=== PATIENT | female | born 1930 | race Caucasian/White ===

== ENCOUNTER → 2016-08-04 | Outpatient (CLI) | payer MEDICARE, BC ==
[2016-08-04 14:18] VITALS: BP 127/75; PULSE 69; RESP 16; TEMP 97.8
--- NOTE | 2016-08-04 15:40 | P.CONS ---
History of Present Illness - Reason for Consult Consult date: 08/04/16 - History of Present Illness This is the initial consultation visit for this 86 years old female, thought complaining of severe low back pain with radiation to both lower extremities February 2016, she denies any initiating event she has no history of trauma or fall, no history of heavy lifting, as she reported that the pain intensity increased over a few days and she had no motor or sensory deficit, and no change in the bowel movement or urination, intensity of the pain is 8/10 and increases with any activity, and therapeutic with her activities of daily livings, patient had 2 lumbar epidural steroid injections at different pain clinic and she had improvement in her pain that is radiated to the right lower extremity but she continued to have severe pain that radiated to the left lower extremity, and she reported that 3 days after the second epidural steroid injection she has to be admitted to the hospital, because of increased pain and nausea and she had urinary tract infection, she is able to ambulate using a walker, but she is not able to walk on her own because of the intensity of the pain and feels unsteady gait, she is using Percocet 5/325 every 6 hours, and this helping the pain ,but according to her ,it make her very sleepy, Past Medical History Past Medical History: Myocardial Infarction ([place]) Additional Past Medical History / Comment(s): back pain Last Myocardial Infarction Date:: Apr 20 History of Any Multi-Drug Resistant Organisms: None Reported Past Surgical History: Appendectomy, Cholecystectomy, Heart Catheterization Additional Past Surgical History / Comment(s): jinny 06/03/16 and 07/03/16 Past Anesthesia/Blood Transfusion Reactions: No Reported Reaction Past Psychological History: No Psychological Hx Reported Smoking Status: Never smoker Past Alcohol Use History: None Reported Past Drug Use History: None Reported - Past Family History Mother History Unknown: Yes Family Medical History: No Reported History Medications and Allergies Home Medications Medication Instructions Recorded Confirmed Type Aspirin [Adult Low Dose Aspirin EC] 81 mg PO DAILY 08/04/16 08/04/16 History Furosemide [Lasix] 10 mg PO DAILY 08/04/16 08/04/16 History Hydrocodone/Acetaminophen [[place] 1 tab PO Q6H PRN 08/04/16 08/04/16 History 5-325] Ibuprofen [Motrin] 400 mg PO TID PRN 08/04/16 08/04/16 History Potassium Chloride [Klor-Con 20] 40 meq PO DAILY 08/04/16 08/04/16 History Pregabalin [Lyrica] 75 mg PO TID 08/04/16 08/04/16 History Allergies Allergy/AdvReac Type Severity Reaction Status Date / Time egg Allergy Unknown Verified 08/04/16 13:58 nitroglycerin Allergy Unknown Verified 08/04/16 13:58 [From Nitro-Bid] Penicillins Allergy Unknown Verified 08/04/16 13:58 Sulfa (Sulfonamide Allergy Unknown Verified 08/04/16 13:58 Antibiotics) Physical Exam Vitals: Vital Signs Temp Pulse Resp BP Pulse Ox 08/04/16 14:09 97.8 F 69 16 127/75 96 - Constitutional Social history : not smoker , NO ETOH , NO Illegal drugs use . Review of Systems : 1- Constitutional : no chills , no fever , no night sweats , 2- Ears : no ear discharge , no change in hearing 3-Nose, Mouth ,Throat ; no bleeding gums, no sore throat , no epistaxis , 4-Cardiovascular : Denies chest pain, , no orthopnea , no palpitation 5-Respiratory : Denies cough , no dyspnea , no hemoptysis 6-Gastrointestinal :, no change in bowel habits , no coffee- ground emesis . 7-Genitourinary : No hematuria , no discharge , no incontinence, 8-Musculoskeletal gait dysfunction , report low back pain , 9- Neurological : no ataxia , no tremor , no sezure , 10-Psychatric , no suicidal ideation no hallucination 11- Endocrine : no cold intolerence , no polyuria , no polydypsia , 12-Hematologic : no easy bleeding , no easy brusing , 13-Allergic / immunology : no angioedema , no wheezing ,no allergic rhinitis 14-Integumentary : no brttle nails , no change hair / nails , no foot/leg ulcers . Physical Examinations : 1-Constitutional : Cooperative , not in acute distress . 2-HEENT : nech ; supple , no Lymphadenopathy , no Thyromegaly , eyes , no icterus, no photophobia . ENT : , normal oropharynx , no Thrush 3- Respiratory : Chest clear to auscultations Bilaterally , no wheezing . 4- Cardiovascular : regular rate and rhythem , S1 , S2 , no S3 , no S4. 5- Gastrointestinal: abdomen soft no tenderness , no organomegally . 6- Genitourinary : Defferred . 7-Integumentary : No cellulitis , no ulcers , normal skin turgor , no cyanotic . 8- neurologic : Cranial nerve II to XII intact , no focal neurological deffecit 9-psychatric : alert , oriented X 3 , appropriate affect , intact judgment and insight . 10-Lymphatic : no Lymphadenopathy. 11- musculoskeltal: Uses walker to ambulate exams of the Lumber spine = moter stegnth lower extremities , thigh and legs 4/5 Right side , 4/5 Left side deep tendon reflexes : normal Knee Jerk , normal ankle Jerk positive lumber facet Loading Test Range of motion of the lumbar spine Flexion 30 degrees, extension 10 degrees strait leg raising test , positive at 30 degree( left side ) Fabere test negative RT and positive LT . Results Comments: MRI of the lumbar spine= multilevel lumbar bulging disc disease and foraminal stenosis, and multilevel lumbar facet arthropathy, and a grade 1 anterolisthesis Assessment and Plan Plan: Assessment and plan = - Chronic low back pain secondary to lumbar degenerative disc disease , lumbar spondylosis with facet arthropathy without myelopathy - diagnoses, prognosis, and treatment options including but not limited to physical therapy, surgical interventions, interventional therapies and medication management including narcotics and adjuvant medication were discussed with the patient and all questions answered to the patient's satisfaction. -medication refile =1-recommend increase Lyrica 75 mg 1 tablet by mouth every 8 hours (currently she is taking it twice a day) 2-discontinue Percocet 5/325 (patient had side effects from it made her very sleepy ) 3-start patient on [place] 5/325 1/2 -1 tablet by mouth every 6 hours dispensed 60 -procedure= scheduled patient to have lumbar epidural steroid injections under fluoroscopy guidance (left sided paramedian approach ) and this will be done Tomorrow morning , Time with Patient: Greater than 30
== END | disposition home or self-care (01) ==
LOC: PNWHC3 13:34
PROVIDERS: ATTEND Specialist
DX: M51.36 Other intervertebral disc degeneration, lumbar region (principal); M47.816 Spondylosis without myelopathy or radiculopathy, lumbar region; M46.96 Unspecified inflammatory spondylopathy, lumbar region; M51.26 Other intervertebral disc displacement, lumbar region; M48.06 Spinal stenosis, lumbar region; Z79.899 Other long term (current) drug therapy; Z88.0 Allergy status to penicillin; Z88.2 Allergy status to sulfonamides; Z88.8 Allergy status to other drugs, medicaments and biological substances; Z91.012 Allergy to eggs; I25.2 Old myocardial infarction
CPT/HCPCS: 99211

== ENCOUNTER 2016-08-05 06:14 | Day surgery (SDC) | payer MEDICARE, BC ==
[2016-08-05] MEDS ORDERED: LACTATED RINGERS 1,000 ML IV ONE (06:51)
[2016-08-05 06:57] VITALS: TEMP 99.3
[2016-08-05] MEDS ORDERED: LACTATED RINGERS 1,000 ML IV SCH (07:00)
[2016-08-05] MEDS ORDERED: fentaNYL (PF) 50 MCG/ML 2 ML AMP ONE (07:41)
[2016-08-05] MEDS ORDERED: MIDAZOLAM 2 MG/2 ML VIAL ONE (07:41)
--- NOTE | 2016-08-05 07:55 | P.PCN ---
Date of Procedure: 08/05/16 Procedure(s) Performed: PREOPERATIVE DIAGNOSIS: 1- Lumbar Degenerative Disc Diseases 2-Lumbar spondylosis with Facet arthropathy without myelopathy POSTOPERATIVE DIAGNOSIS: 1-Lumber Degenerative Disc Diseases 2-Lumbar spondylosis with Facet arthropathy without myelopathy PROCEDURE 1. Lumbar epidural steroid injection under fluoroscopic guidance at the L5-S1 level. 2. Lumbar epidurogram. ANESTHESIA: Local with 1% lidocaine 3 ml and IV sedation with Versed 0.5 mg ,and fentanyle 25 Mcg EBL: Minimal PROCEDURE INDICATION: The patient with low back pain and radiculitis symptoms unresponsive to conservative treatment. Fluoroscopy was used to optimize visualization of the needle placement and to maximize safety. PROCEDURE DESCRIPTION / TECHNIQUE: The patient was seen and identified in the preoperative area. Risks, benefits , complications including but not limited to infections ,bleeding ,allergic reaction to the medications ,nerve damage and not complete pain releife , and alternatives were discussed with the patient. The patient agreed to proceed with the procedure and signed the consent. IV was started, and vital signs were stable. Patient was taken to the OR and time out was completed. The patient was placed in the prone position on procedure table and a pillow was placed under the abdomen to reduce lumbar lordosis. The lumbosacral area was prepped and draped in the usual sterile fashion.ere closely monitored during the procedure. Conscious sedation was used during the procedure to decrease patients anxiety. Vital signs was monitered during the entire procedure. Using anterior-posterior fluoroscopy, the L5-S1 interlaminar space was identified and the skin over this site was marked and then infiltrated with 1% lidocaine subcutaneously. Subsequently, a 20-gauge Tuohy epidural needle was inserted and advanced toward the epidural space using the Loss of resistance technique and guided by AP and lateral fluoroscopy. The correct needle position in the epidural space was verified with the injection of 2 mL of the water soluble contrast dye Omnipaque 180 contrast and observing an excellent epidurogram with the epidural spread of the dye, after negative aspiration for blood and CSF and in the absence of paresthesias. Again after negative aspiration, a 6 ml mixture containing 60 mg of Kenalog and 2 ml of preservative free Normal Saline, and 2 ml of preservative free lidocaine 1% solution was injected and a washout of epidurogram was seen. Needle was withdrawn intact, skin was cleansed, and bandages were applied. COMPLICATIONS: None DISPOSITION / PLANS: The patient was placed in a supine position and transferred to the recovery area in a stable condition for observation. There was no evidence of lower extremity motor or sensory deficit after the procedure. Patient was discharged from the recovery room after meeting discharge criteria. Home discharge instructions were given to the patient by the staff. The patient was reexamined prior to discharge. The patient will schedule a follow up in the clinic in 2-4 weeks.
[2016-08-05] MEDS ORDERED: IV FLUID CONTINUATION 900 ML IV ONE (08:02)
[2016-08-05 08:25] VITALS: BP 125/45; PULSE 69; RESP 16
--- NOTE | 2016-08-05 09:13 | FL ---
Fluoroscopy HISTORY: Pain 4 seconds fluoroscopy time supplied to the referring clinician. 1intraoperative C-arm images documen t the procedure. See dictated report from anesthesia.
== END 2016-08-05 09:06 | disposition home or self-care (01) ==
LOC: ORPAIN 06:14
PROVIDERS: ATTEND Specialist
DX: M51.16 Intervertebral disc disorders with radiculopathy, lumbar region (principal); M47.26 Other spondylosis with radiculopathy, lumbar region; M46.96 Unspecified inflammatory spondylopathy, lumbar region; M48.06 Spinal stenosis, lumbar region; M43.16 Spondylolisthesis, lumbar region; G89.29 Other chronic pain; I25.2 Old myocardial infarction; Z79.1 Long term (current) use of non-steroidal anti-inflammatories (NSAID); Z79.82 Long term (current) use of aspirin; Z79.891 Long term (current) use of opiate analgesic; Z79.899 Other long term (current) drug therapy; Z88.0 Allergy status to penicillin; Z88.2 Allergy status to sulfonamides; Z88.8 Allergy status to other drugs, medicaments and biological substances; Z91.012 Allergy to eggs
CPT/HCPCS: 62323; J2250; J3010

== ENCOUNTER → 2016-08-20 | Outpatient (CLI) | payer MEDICARE, BC ==
[2016-08-20 14:39] VITALS: BP 153/92; PULSE 185; RESP 16; TEMP 98
--- NOTE | 2016-08-20 15:04 | P.PN ---
Progress Note - Text This is an 86-year-old female with lower back pain with radiation to the left lower extremity down to the left foot with numbness and tingling. The patient has severe lumbar stenosis at the L4 5 level by her last MRI. She had 3 interlaminar epidural steroid injection with limited relief of pain however the patient's states that she is sleeping better after the third injection that she had. The patient now takes 2 pills a day of [place] 5/325 mg to help with the pain. She does have mild degree of constipation as she states and I asked her to take Senokot to help with that. The patient has a trip for 1 month to [place] we will see her when she comes back for reevaluation however I think she might need to have transforaminal epidural steroid injection at the L4 5 level towards the left side under fluoroscopic guidance. She also may be a candidate for lumbar medial branch block as diagnostic procedure in the future if her lower back pain is getting worse. Today I will give her prescription for [place] 5/325 mg 60 pills for 1 month. We will see her when she goes back from [place] in September for reevaluation.
== END | disposition home or self-care (01) ==
LOC: PNWHC3 13:04
PROVIDERS: ATTEND Anesthesiology
DX: M48.06 Spinal stenosis, lumbar region (principal); K59.00 Constipation, unspecified; Z79.899 Other long term (current) drug therapy
CPT/HCPCS: 99211

== ENCOUNTER 2016-10-23 11:53 | Observation (INO) | payer MEDICARE, BC ==
--- NOTE | 2016-10-23 13:52 | ED ---
General Adult HPI <Ruel Fajardo - Last Filed: 10/23/16 16:38> - General Source: patient, family, RN notes reviewed Mode of arrival: wheelchair Limitations: no limitations <Alek Welsh - Last Filed: 10/23/16 16:50> - General Chief complaint: Extremity Problem,Nontraumatic Stated complaint: leg infection, Nausea Time Seen by Provider: 10/23/16 13:39 - History of Present Illness Initial comments: Patient a 86-year-old female who presents emergency room today with a chief complaint of nausea and leg edema. She does admit that she's had some chronic swelling to her legs over the last few months. Also admits some redness and rash to the area. States was seen by the family doctor earlier today and was advised come here to the emergency room for further evaluation. States he was worried about possible blood clot. States she has had some nausea off and on. States that unsure if this is related back to medication of Lyrica that she began taking back June. She states tried weaning her off a few times but develops symptoms of nausea. Patient denies any other complaints currently. Patient denies any recent fever, chills, shortness of breath, chest pain, abdominal pain, nausea or vomiting, numbness or tingling, dysuria or hematuria, constipation or diarrhea, headaches or visual changes, or any other complaints. (Alek Welsh) - Related Data Home Medications Medication Instructions Recorded Confirmed Aspirin [Adult Low Dose Aspirin EC] 81 mg PO DAILY 08/04/16 10/23/16 Furosemide [Lasix] 10 mg PO DAILY 08/04/16 10/23/16 Hydrocodone/Acetaminophen [[place] 1 tab PO Q6H PRN 08/04/16 10/23/16 5-325] Potassium Chloride [Klor-Con 20] 40 meq PO DAILY 08/04/16 10/23/16 Pregabalin [Lyrica] 50 mg PO DAILY 10/23/16 10/23/16 Previous Rx's Medication Instructions Recorded ALPRAZolam [Xanax] 0.5 mg PO HS PRN #30 tab 07/09/16 Allergies Allergy/AdvReac Type Severity Reaction Status Date / Time egg Allergy Unknown Verified 10/23/16 12:56 nitroglycerin Allergy Unknown Verified 10/23/16 12:56 [From Nitro-Bid] Penicillins Allergy Unknown Verified 10/23/16 12:56 Sulfa (Sulfonamide Allergy Unknown Verified 10/23/16 12:56 Antibiotics) pregabalin [From Lyrica] AdvReac LEG Verified 10/23/16 12:56 SWELLING Review of Systems ROS Other: All systems not noted in ROS Statement are negative. <Ruel Fajardo - Last Filed: 10/23/16 16:38> ROS Other: All systems not noted in ROS Statement are negative. <Alek Welsh - Last Filed: 10/23/16 16:50> ROS Statement: Those systems with pertinent positive or pertinent negative responses have been documented in the HPI. Past Medical History Past Medical History: Myocardial Infarction ([place]) Additional Past Medical History / Comment(s): back pain Last Myocardial Infarction Date:: Apr 20 History of Any Multi-Drug Resistant Organisms: None Reported Past Surgical History: Appendectomy, Cholecystectomy, Heart Catheterization Additional Past Surgical History / Comment(s): ijnny 06/03/16 and 07/03/16 Past Anesthesia/Blood Transfusion Reactions: No Reported Reaction Past Psychological History: No Psychological Hx Reported Smoking Status: Never smoker Past Alcohol Use History: None Reported Past Drug Use History: None Reported - Past Family History Mother History Unknown: Yes Family Medical History: No Reported History <Alek Welsh - Last Filed: 10/23/16 16:50> General Exam <Ruel Fajardo - Last Filed: 10/23/16 16:38> Limitations: no limitations <WelshAlek - Last Filed: 10/23/16 16:50> - General Exam Comments Initial Comments: General: The patient is awake and alert, in no distress, and does not appear acutely ill. Eye: Pupils are equal, round and reactive to light, extra-ocular movements are intact. No nystagmus. There is normal conjunctiva bilaterally. No signs of icterus. Ears, nose, mouth and throat: There are moist mucous membranes and no oral lesions. Neck: The neck is supple, there is no tenderness or JVD. Cardiovascular: There is a regular rate and rhythm. No murmur, rub or gallop is appreciated. Respiratory: Lungs are clear to auscultation, respirations are non-labored, breath sounds are equal. No wheezes, stridor, rales, or rhonchi. Gastrointestinal: Soft, non-distended, non-tender abdomen without masses or organomegaly noted. There is no rebound or guarding present. No CVA tenderness. Bowel sounds are unremarkable. Musculoskeletal: Normal ROM. Strength 5/5. Sensation intact. Pulses equal bilaterally 2+. 2+ pitting edema. Neurological: A&O x 3. CN II-XII intact, There are no obvious motor or sensory deficits. Coordination appears grossly intact. Speech is normal. Skin: Skin is warm and dry and no rashes or lesions are noted. Psychiatric: Cooperative, appropriate mood & affect, normal judgment. (Alek Welsh) Course <Ruel Fajardo - Last Filed: 10/23/16 16:38> <Alek Welsh - Last Filed: 10/23/16 16:50> Vital Signs 10/23/16 11:58 Temperature 98.0 F Pulse Rate 62 Respiratory 16 Rate Blood Pressure 140/66 O2 Sat by Pulse 97 Oximetry - Reevaluation(s) Reevaluation #1: 10/23/16 16:38 Patient reevaluated by myself, Dr. Fajardo. Patient resting comfortably at bedside. Patient does have +2 pitting edema. Patient was sent over by Dr. Mcarthur with plan for admission for pedal edema. Case was discussed in detail with Dr. Bellamy, who will admit with Lasix 40 mg every 12 hours. She also recommends echo. (Ruel Fajardo) Medical Decision Making - Lab Data Result diagrams: 10/23/16 14:15 10/23/16 14:15 <Ruel Fajardo - Last Filed: 10/23/16 16:38> - Lab Data Result diagrams: 10/23/16 14:15 10/23/16 14:15 <Alek Welsh - Last Filed: 10/23/16 16:50> - Lab Data Lab Results 10/23/16 10/23/16 10/23/16 Range/Units 14:15 14:15 14:15 WBC 6.7 (3.8-10.6) k/uL RBC 3.67 L (3.80-5.40) m/uL Hgb 11.7 (11.4-16.0) gm/dL Hct 34.9 (34.0-46.0) % MCV 95.2 (80.0-100.0) fL MCH 31.9 (25.0-35.0) pg MCHC 33.6 (31.0-37.0) g/dL RDW 14.2 (11.5-15.5) % Plt Count 222 (150-450) k/uL Neutrophils % 71 % Lymphocytes % 17 % Monocytes % 5 % Eosinophils % 5 % Basophils % 1 % Neutrophils # 4.8 (1.3-7.7) k/uL Lymphocytes # 1.1 (1.0-4.8) k/uL Monocytes # 0.3 (0-1.0) k/uL Eosinophils # 0.3 (0-0.7) k/uL Basophils # 0.0 (0-0.2) k/uL Sodium 143 (137-145) mmol/L Potassium 4.0 (3.5-5.1) mmol/L Chloride 105 (98-107) mmol/L Carbon Dioxide 29 (22-30) mmol/L Anion Gap 9 mmol/L BUN 30 H (7-17) mg/dL Creatinine 1.25 H (0.52-1.04) mg/dL Est GFR (MDRD) Af Amer 49 (>60 ml/min/1.73 sqM) Est GFR (MDRD) Non-Af 41 (>60 ml/min/1.73 sqM) Glucose 100 H (74-99) mg/dL Calcium 9.6 (8.4-10.2) mg/dL Total Bilirubin 0.6 (0.2-1.3) mg/dL AST 39 H (14-36) U/L ALT 40 (9-52) U/L Alkaline Phosphatase 68 (38-126) U/L Total Creatine Kinase 69 (30-135) U/L CK-MB (CK-2) 2.3 (0.0-2.4) ng/mL CK-MB (CK-2) Rel Index 3.3 Troponin I <0.012 (0.000-0.034) ng/mL NT-Pro-B Natriuret Pep pg/mL Total Protein 6.9 (6.3-8.2) g/dL Albumin 3.9 (3.5-5.0) g/dL 10/23/16 Range/Units 14:15 WBC (3.8-10.6) k/uL RBC (3.80-5.40) m/uL Hgb (11.4-16.0) gm/dL Hct (34.0-46.0) % MCV (80.0-100.0) fL MCH (25.0-35.0) pg MCHC (31.0-37.0) g/dL RDW (11.5-15.5) % Plt Count (150-450) k/uL Neutrophils % % Lymphocytes % % Monocytes % % Eosinophils % % Basophils % % Neutrophils # (1.3-7.7) k/uL Lymphocytes # (1.0-4.8) k/uL Monocytes # (0-1.0) k/uL Eosinophils # (0-0.7) k/uL Basophils # (0-0.2) k/uL Sodium (137-145) mmol/L Potassium (3.5-5.1) mmol/L Chloride (98-107) mmol/L Carbon Dioxide (22-30) mmol/L Anion Gap mmol/L BUN (7-17) mg/dL Creatinine (0.52-1.04) mg/dL Est GFR (MDRD) Af Amer (>60 ml/min/1.73 sqM) Est GFR (MDRD) Non-Af (>60 ml/min/1.73 sqM) Glucose (74-99) mg/dL Calcium (8.4-10.2) mg/dL Total Bilirubin (0.2-1.3) mg/dL AST (14-36) U/L ALT (9-52) U/L Alkaline Phosphatase (38-126) U/L Total Creatine Kinase (30-135) U/L CK-MB (CK-2) (0.0-2.4) ng/mL CK-MB (CK-2) Rel Index Troponin I (0.000-0.034) ng/mL NT-Pro-B Natriuret Pep 201 pg/mL Total Protein (6.3-8.2) g/dL Albumin (3.5-5.0) g/dL Disposition <Ruel Fajardo - Last Filed: 10/23/16 16:38> Time of Disposition: 16:30 <Alek Welsh - Last Filed: 10/23/16 16:50> Clinical Impression: Pedal edema Disposition: ADMITTED IP TO THIS HOSP Condition: Good
[2016-10-23 14:38] LABS: Basophils % (A) 1 %; CH 31.7; CHCM 33.4; Eosinophils # (A) 0.3 k/uL (0-0.7); Eosinophils % (A) 5 %; HCT 34.9 % (34.0-46.0); HDW 2.98; HGB 11.7 gm/dL (11.4-16.0); Luc # (Auto) 0.15; Luc % (Auto) 2; Lymphocytes # (A) 1.1 k/uL (1.0-4.8); Lymphocytes % (A) 17 %; MCH 31.9 pg (25.0-35.0); MCHC 33.6 g/dL (31.0-37.0); MCV 95.2 fL (80.0-100.0); Mean Platelet Volume 6.9; Monocytes # (A) 0.3 k/uL (0-1.0); Monocytes % (A) 5 %; Neutrophils # (A) 4.8 k/uL (1.3-7.7); Neutrophils % (A) 71 %; RBC 3.67 m/uL (3.80-5.40); RDW 14.2 % (11.5-15.5); WBC 6.7 k/uL (3.8-10.6)
--- NOTE | 2016-10-23 14:42 | XR ---
EXAMINATION TYPE: XR chest 2V DATE OF EXAM: 10/23/2016 2:37 PM COMPARISON: NONE TECHNIQUE: PA and lateral views submitted. HISTORY: Leg edema FINDINGS: The lungs are clear and there is no pneumothorax, pleural effusion, or focal pneumonia. Heart is en larged. Position limits portions of the upper lung rojas bilaterally. Degenerative change of the spi ne. Surgical clips in the abdomen. Atherosclerotic change aorta. Calcific tendinosis of the right giovany ulder. IMPRESSION: 1. Mild cardiomegaly. No overt failure.
[2016-10-23 14:51] LABS: Calcium 9.6 mg/dL (8.4-10.2); Total Bilirubin 0.6 mg/dL (0.2-1.3); Total Protein 6.9 g/dL (6.3-8.2)
[2016-10-23 15:39] LABS: Creatine Kinase 69 U/L (30-135)
[2016-10-23] MEDS ORDERED: HYDROcodone/APAP 7.5-325MG 1 EACH TAB PO ONE (15:41)
[2016-10-23] MEDS ORDERED: ONDANSETRON ODT 4 MG TAB PO STA (15:41)
[2016-10-23 15:53] LABS: Creatine Kinase MB 2.3 ng/mL (0.0-2.4); Troponin I <0.012 ng/mL (0.000-0.034)
--- NOTE | 2016-10-23 16:06 | US ---
EXAMINATION TYPE: US venous doppler duplex LE BI DATE OF EXAM: 10/23/2016 3:28 PM COMPARISON: 07/09/2016 CLINICAL HISTORY: Pain. Bilateral leg swelling SIDE PERFORMED: Bilateral TECHNIQUE: The lower extremity deep venous system is examined utilizing real time linear array sonog deepali with graded compression, doppler sonography and color-flow sonography. VESSELS IMAGED: External Iliac Vein (EIV) Common Femoral Vein Deep Femoral Vein Greater Saphenous Vein * Femoral Vein Popliteal Vein Small Saphenous Vein * Proximal Calf Veins (* superficial vessels) Right Leg: Appears negative for DVT, compressions were not done at the levels of the EIV, CFV and pr oximal femoral vein, patient unable to tolerate the transducer pressure during those compression atte mpts Left Leg: Appears negative for DVT IMPRESSION: 1. Limited exam due to patient's inability to tolerate compression view within portions of the right lower extremity. No DVT as visualized.
[2016-10-23] MEDS ORDERED: SODIUM CHLORIDE 0.9% 1,000 ML IV ONE (16:47)
[2016-10-23] MEDS ORDERED: NALOXONE 0.4 MG/ML 1 ML VIAL IV PRN (16:47)
[2016-10-23] MEDS ORDERED: ALPRAZolam 0.5 MG TAB PO PRN (16:49)
[2016-10-23] MEDS ORDERED: FUROSEMIDE 10 MG/ML 4 ML VIAL IV STA (16:49)
[2016-10-23 17:03] LABS: Appearance,Urine Clear (Clear); Bilirubin,Urine Negative (Negative); Glucose,Urine (UA) Negative (Negative); Ketones,Urine Negative (Negative); Leukocyte Esterase,Urine Negative (Negative); Nitrite,Urine Negative (Negative); Protein,Urine Trace (Negative); UA Billing (MACRO vs. MICRO) CHEM; Urobilinogen,Urine <2.0 mg/dL (<2.0)
[2016-10-23] MEDS: FUROSEMIDE 10 MG/ML 4 ML VIAL IV SCH (20:41)
[2016-10-23] MEDS: HYDROcodone/APAP 5-325MG 1 EACH TAB PO PRN (21:59)
[2016-10-24] MEDS ORDERED: ONDANSETRON 4 MG/2 ML VIAL ONE ×2 (01:19→04:40)
[2016-10-24] MEDS ORDERED: HYDROcodone/APAP 5-325MG 1 EACH TAB ONE (04:40)
[2016-10-24] MEDS: ONDANSETRON 4 MG/2 ML VIAL IVP PRN ×2 (07:54→14:10)
[2016-10-24] MEDS: POTASSIUM CHLORIDE ER 20 MEQ TAB.ER PO SCH (07:56)
[2016-10-24] MEDS: ASPIRIN 81 MG CHEW PO SCH (07:56)
[2016-10-24] MEDS: FUROSEMIDE 10 MG/ML 4 ML VIAL IV SCH ×2 (07:57→21:18)
[2016-10-24 08:20] LABS: Basophils # (A) 0.1 k/uL (0-0.2); Basophils % (A) 1 %; CH 32.1; CHCM 34.1; Eosinophils # (A) 0.2 k/uL (0-0.7); Eosinophils % (A) 3 %; HCT 34.3 % (34.0-46.0); HDW 3.13; HGB 11.5 gm/dL (11.4-16.0); Luc # (Auto) 0.23; Luc % (Auto) 4; Lymphocytes # (A) 1.1 k/uL (1.0-4.8); Lymphocytes % (A) 18 %; MCH 31.7 pg (25.0-35.0); MCHC 33.5 g/dL (31.0-37.0); MCV 94.7 fL (80.0-100.0); Mean Platelet Volume 6.9; Monocytes # (A) 0.4 k/uL (0-1.0); Monocytes % (A) 6 %; Neutrophils # (A) 4.4 k/uL (1.3-7.7); Neutrophils % (A) 69 %; RBC 3.63 m/uL (3.80-5.40); RDW 13.8 % (11.5-15.5); WBC 6.4 k/uL (3.8-10.6); WBC (Perox) 6.96
[2016-10-24 08:43] LABS: Calcium 9.5 mg/dL (8.4-10.2); Potassium 3.7 mmol/L (3.5-5.1); Total Bilirubin 0.8 mg/dL (0.2-1.3); Total Protein 6.9 g/dL (6.3-8.2)
[2016-10-24] MEDS: IOHEXOL 350 MG/ML 25 ML BOTTLE (ORAL USE) PO PRN ×2 (13:13→14:10)
[2016-10-24] MEDS: PANTOPRAZOLE 40 MG/10 ML VIAL IVP SCH (13:14)
--- NOTE | 2016-10-24 14:50 | CT ---
EXAMINATION TYPE: CT abdomen pelvis wo con DATE OF EXAM: 10/24/2016 2:44 PM COMPARISON: NONE HISTORY: abdominal pain, nausea CT DLP: 862 mGycm FINDINGS: LUNG BASES: No evidence for nodule. No evidence for infiltrate. LIVER/GB: Cholecystectomy clips are noted. No space-occupying hepatic lesion. PANCREAS: No pancreatic mass identified. No inflammatory process seen. SPLEEN: No evidence for splenomegaly. No intrasplenic lesions seen. ADRENALS: No adrenal nodules identified. No evidence for thickening. KIDNEYS: Small nonspecific hypoattenuating renal lesions are likely atelectasis. No nephrolithiasis. No hydronephrosis. BOWEL: There is moderately severe fecal stasis throughout the colon. Appendix has a normal appearance . No evidence of bowel obstruction. No inflammatory process. Small fixed hiatal hernia. Lymph nodes: No evidence for adenopathy greater than 1 cm. Abdominal aorta: Atheromatous changes seen. No evidence for aneurysm. Genital organs: Severe degenerative change is grade 1 anterolisthesis L4 and L5 Other: No significant abnormality. IMPRESSION: 1. MODERATELY SEVERE CONSTIPATION. 2. PROBABLE RENAL CYSTS. 3. SMALL HIATAL HERNIA.
[2016-10-24 15:44] VITALS: RESP 16
--- NOTE | 2016-10-24 17:03 | P.HPIM ---
History of Present Illness H&P Date: 10/24/16 Chief Complaint: Edema nausea This is a pleasant 86 show old lady patient of Dr. Lyubov Magana and Dr. Bautista. She has underlying history of lumbar disc disease with L4-L5 severe spinal stenosis, disc herniation spondylolisthesis the previous MRI performed April 2016she recently had an epidural steroid injection performed a lumbar area by Dr. Bautista 07/03/2016 she is scheduled to have spine surgery for her lumbar stenosis L2-L3, severe DJD with disc protrusion L1-L2, however they cannot perform the surgery as his lower extremity swelling has not gotten any better, he also wanted her to be evaluated emergency room second the clinic to the rash and lower extremity swelling. Patient has intermittently been nauseated with severe constipation, they thought it was from the Lyrica and was weaning of the Lyrica her last dose was a week ago, she also has upper epigastric abdominal pain with prior history of cholecystectomy, she has been having increasing use of Motrin patient denies any melena hematochezia no fever no chills no recent foreign travels. In the emergency room labs shows WBC of 6.4, hemoglobin 11.5 from a previous of 13.6 in June 2016, creatinine of 1.19 previous of 0.81 urinalysis is negative, amylase lipase normal, [employer] proBNP normal, albumin normal at 3.9, chest x-ray shows mild cardiomegaly with no overt failure, no pneumothorax or pleural effusion no focal pneumonia venous Doppler lower extremity failed to reveal any lower extremity DVT Review of Systems Constitutional: Reports as per HPI, Reports anorexia, Reports chronic pain, Reports fatigue, Reports lethargy, Reports poor appetite, Reports weight gain, Denies chills, Denies chronic headaches, Denies daytime sleepiness, Denies fever , Denies malaise, Denies night sweats, Denies sweats, Denies weakness, Denies weight loss Ears, nose, mouth and throat: Reports as per HPI, Denies ant. neck pain, Denies bleeding gums, Denies dental pain, Denies dysphagia, Denies epistaxis, Denies headache, Denies hoarseness, Denies mouth pain, Denies nasal congestion, Denies nasal discharge, Denies neck fullness/pressure, Denies neck lump, Denies nose pain, Denies odynophagia, Denies post-nasal drip, Denies sinus pain, Denies sinus pressure, Denies swelling in mouth, Denies swelling in throat, Denies sore throat, Denies vertigo, Denies voice changes Cardiovascular: Reports as per HPI, Reports leg edema, Denies chest pain, Denies claudication, Denies decreased exercise tolerance, Denies dyspnea on exertion, Denies edema, Denies high blood pressure, Denies irregular heart beat , Denies lightheadedness, Denies orthopnea, Denies palpitations, Denies paroxysmal nocturnal dyspnea, Denies phlebitis, Denies rapid heart beat, Denies shortness of breath, Denies syncope Respiratory: Reports as per HPI, Denies congestion, Denies cough, Denies cough with sputum, Denies dyspnea, Denies excessive sputum, Denies hemoptysis, Denies home oxygen, Denies pain, Denies pain on inspiration, Denies pleurisy, Denies respiratory infections, Denies sleep apnea, Denies snoring, Denies wheezing Gastrointestinal: Reports as per HPI, Reports abdominal pain, Reports bloating, Reports constipation, Reports indigestion, Denies belching, Denies BRBPR, Denies change in bowel habits, Denies coffee ground emesis, Denies diarrhea, Denies dyspepsia, Denies early satiety, Denies excessive gas, Denies heartburn, Denies hematemesis, Denies hematochezia, Denies jaundice, Denies lactose intolerance, Denies loss of appetite, Denies melena, Denies nausea, Denies vomiting Genitourinary: Reports as per HPI Menstruation: Reports as per HPI, Reports postmenopausal Musculoskeletal: Reports as per HPI, Denies arm numbness/tingling, Denies atrophy, Denies fractures, Denies frequent falls, Denies gait dysfunction, Denies hot joints, Denies leg numbness/tingling, Denies limitation of motion, Denies loss of height, Denies low back pain, Denies morning stiffness, Denies muscle cramps, Denies muscle weakness, Denies myalgias, Denies neck pain, Denies neck stiffness, Denies prior amputations, Denies redness of joints, Denies shooting arm pain, Denies shooting leg pain Integumentary: Reports as per HPI, Denies acne, Denies boils, Denies brittle nails, Denies change in hair/nails, Denies color changes, Denies darkening of skin, Denies depigmentation, Denies dryness, Denies foot/leg ulcers, Denies growths, Denies hirsutism, Denies lesions, Denies onychomycosis, Denies pruritus , Denies rash, Denies sores, Denies striae, Denies unusual bruising, Denies wounds Neurological: Reports as per HPI Past Medical History Past Medical History: Myocardial Infarction (OK), Osteoarthritis (OA) Additional Past Medical History / Comment(s): back pain, STRESS INCONT OF URINE , ARTHRITIS IN SPINE, SHINGLE LESS THAN 5 YEARS AGO Last Myocardial Infarction Date:: Apr 20 History of Any Multi-Drug Resistant Organisms: None Reported Past Surgical History: Appendectomy, Cholecystectomy, Heart Catheterization, Tonsillectomy, Tubal Ligation Additional Past Surgical History / Comment(s): jinny 06/03/16 and 07/03/16, CATARACTS Past Anesthesia/Blood Transfusion Reactions: No Reported Reaction Past Psychological History: No Psychological Hx Reported Additional Psychological History / Comment(s): LIVE WITH ,IS INDEPENDANT , HAS A CLEANING SERVICE. NO MEDICAL EQUIPMENT. Smoking Status: Never smoker Past Alcohol Use History: None Reported Past Drug Use History: None Reported - Past Family History Mother History Unknown: Yes Family Medical History: No Reported History Additional Family Medical History / Comment(s): AFTER A SX FROM A BLOOD CLOT. Father Family Medical History: Dementia Medications and Allergies Home Medications Medication Instructions Recorded Confirmed Type Aspirin [Adult Low Dose Aspirin EC] 81 mg PO DAILY 08/04/16 10/23/16 History Furosemide [Lasix] 10 mg PO DAILY 08/04/16 10/23/16 History Hydrocodone/Acetaminophen [[place] 1 tab PO Q6H PRN 08/04/16 10/23/16 History 5-325] Potassium Chloride [Klor-Con 20] 40 meq PO DAILY 08/04/16 10/23/16 History Pregabalin [Lyrica] 50 mg PO DAILY 10/23/16 10/23/16 History Allergies Allergy/AdvReac Type Severity Reaction Status Date / Time egg Allergy Unknown Verified 10/23/16 12:56 nitroglycerin Allergy Unknown Verified 10/23/16 12:56 [From Nitro-Bid] Penicillins Allergy Unknown Verified 10/23/16 12:56 Sulfa (Sulfonamide Allergy Unknown Verified 10/23/16 12:56 Antibiotics) pregabalin [From Lyrica] AdvReac LEG Verified 10/23/16 12:56 SWELLING Physical Exam Vitals: Vital Signs Temp Pulse Pulse Resp BP BP Pulse Ox 10/24/16 15:47 16 10/24/16 15:43 96.4 F L 68 16 144/68 95 10/24/16 15:40 68 10/24/16 08:00 64 18 10/24/16 07:00 98.4 F 67 16 129/59 95 10/23/16 22:10 98.9 F 64 18 140/63 96 10/23/16 19:27 98.8 F 62 18 130/60 97 10/23/16 17:28 65 18 147/67 98 10/23/16 16:58 98.5 F 61 18 149/66 98 Intake and Output 10/24/16 10/24/16 10/24/16 06:59 14:59 22:59 Intake Total 260 160 Balance 260 160 Intake: Intake, IV Titration 160 160 Amount Sodium Chloride 0.9% 1, 160 160 000 ml @ 20 mls/hr IV . Q24H ONE Rx#:[id number] Oral 100 Other: Voiding Method Toilet Toilet # Voids 1 3 - Constitutional General appearance: cooperative, no acute distress, obese - EENT Eyes: anicteric sclerae, PERRLA, poor dentition, normal appearance ENT: no hard of hearing, no hearing grossly normal, NA/AT, normal oropharynx, no other, no pharyngeal erythema, no thrush, no tonsillar exudates, no tonsillar swelling - Neck Neck: no lymphadenopathy, normal ROM, no other, no rigidity, no stridor, no thyromegaly - Respiratory Respiratory: bilateral: CTA, negative: dullness, rales, rhonchi, wheezing - Cardiovascular Rhythm: regular Heart sounds: normal: S1, S2 Abnormal Heart Sounds: no systolic murmur, no diastolic murmur, no rub, no S3 Gallop, no S4 Gallop, no click, no other leg Peripheral Edema: bilateral: 3+ - Gastrointestinal General gastrointestinal: distended, normal bowel sounds, soft, tenderness ( Epigastric upper quadrant) - Integumentary Integumentary: decreased turgor, normal, rash - Neurologic Neurologic: CNII-XII intact - Musculoskeletal Musculoskeletal: generalized weakness - Psychiatric Psychiatric: A&O x's 3, appropriate affect, intact judgment & insight Results CBC & Chem 7: 10/24/16 07:45 10/24/16 07:45 Labs: Abnormal Lab Results - Last 24 Hours (Table) 10/24/16 10/24/16 Range/Units 07:45 07:45 RBC 3.63 L (3.80-5.40) m/uL BUN 27 H (7-17) mg/dL Creatinine 1.19 H (0.52-1.04) mg/dL Glucose 104 H (74-99) mg/dL Laboratory Results WBC 6.4 k/uL (3.8-10.6) 10/24/16 07:45 RBC 3.63 m/uL (3.80-5.40) L 10/24/16 07:45 Hgb 11.5 gm/dL (11.4-16.0) 10/24/16 07:45 Hct 34.3 % (34.0-46.0) 10/24/16 07:45 MCV 94.7 fL (80.0-100.0) 10/24/16 07:45 MCH 31.7 pg (25.0-35.0) 10/24/16 07:45 MCHC 33.5 g/dL (31.0-37.0) 10/24/16 07:45 RDW 13.8 % (11.5-15.5) 10/24/16 07:45 Plt Count 202 k/uL (150-450) 10/24/16 07:45 Neutrophils % 69 % 10/24/16 07:45 Lymphocytes % 18 % 10/24/16 07:45 Monocytes % 6 % 10/24/16 07:45 Eosinophils % 3 % 10/24/16 07:45 Basophils % 1 % 10/24/16 07:45 Neutrophils # 4.4 k/uL (1.3-7.7) 10/24/16 07:45 Lymphocytes # 1.1 k/uL (1.0-4.8) 10/24/16 07:45 Monocytes # 0.4 k/uL (0-1.0) 10/24/16 07:45 Eosinophils # 0.2 k/uL (0-0.7) 10/24/16 07:45 Basophils # 0.1 k/uL (0-0.2) 10/24/16 07:45 Sodium 143 mmol/L (137-145) 10/24/16 07:45 Potassium 3.7 mmol/L (3.5-5.1) 10/24/16 07:45 Chloride 104 mmol/L (98-107) 10/24/16 07:45 Carbon Dioxide 26 mmol/L (22-30) 10/24/16 07:45 Anion Gap 13 mmol/L 10/24/16 07:45 BUN 27 mg/dL (7-17) H 10/24/16 07:45 Creatinine 1.19 mg/dL (0.52-1.04) H 10/24/16 07:45 Est GFR (MDRD) Af Amer 52 (>60 ml/min/1.73 sqM) 10/24/16 07:45 Est GFR (MDRD) Non-Af 43 (>60 ml/min/1.73 sqM) 10/24/16 07:45 Glucose 104 mg/dL (74-99) H 10/24/16 07:45 Calcium 9.5 mg/dL (8.4-10.2) 10/24/16 07:45 Total Bilirubin 0.8 mg/dL (0.2-1.3) 10/24/16 07:45 AST 35 U/L (14-36) 10/24/16 07:45 ALT 41 U/L (9-52) 10/24/16 07:45 Alkaline Phosphatase 61 U/L (38-126) 10/24/16 07:45 Total Creatine Kinase 69 U/L (30-135) 10/23/16 14:15 CK-MB (CK-2) 2.3 ng/mL (0.0-2.4) 10/23/16 14:15 CK-MB (CK-2) Rel Index 3.3 10/23/16 14:15 Troponin I <0.012 ng/mL (0.000-0.034) 10/23/16 14:15 NT-Pro-B Natriuret Pep 201 pg/mL 10/23/16 14:15 Total Protein 6.9 g/dL (6.3-8.2) 10/24/16 07:45 Albumin 3.9 g/dL (3.5-5.0) 10/24/16 07:45 Amylase 48 U/L (30-110) 10/24/16 07:45 Lipase 91 U/L (23-300) 10/24/16 07:45 Urine Color Yellow 10/23/16 16:18 Urine Appearance Clear (Clear) 10/23/16 16:18 Urine pH 7.0 (5.0-8.0) 10/23/16 16:18 Ur Specific [place] 1.020 (1.001-1.035) 10/23/16 16:18 Urine Protein Trace (Negative) H 10/23/16 16:18 Urine Glucose (UA) Negative (Negative) 10/23/16 16:18 Urine Ketones Negative (Negative) 10/23/16 16:18 Urine Blood Negative (Negative) 10/23/16 16:18 Urine Nitrite Negative (Negative) 10/23/16 16:18 Urine Bilirubin Negative (Negative) 10/23/16 16:18 Urine Urobilinogen <2.0 mg/dL (<2.0) 10/23/16 16:18 Ur Leukocyte Esterase Negative (Negative) 10/23/16 16:18 Thrombosis Risk Factor Assmnt - DVT/VTE Prophylaxis DVT/VTE Prophylaxis: Pharmacologic Prophylaxis ordered, Mechanical Prophylaxis ordered - Choose All That Apply Any of the Below Risk Factors Present?: Yes Each Factor Represents 1 point: Obesity (BMI >25), Swollen legs (current) Other Risk Factors: Yes Each Risk Factor Represents 3 Points: Age 75 years or older Other congenital or acquired thrombophilia - If yes, enter type in comment: No Thrombosis Risk Factor Assessment Total Risk Factor Score: 5 Thrombosis Risk Factor Assessment Level: High Risk Assessment and Plan Plan: 1. Intractable nausea and vomiting with epigastric abdominal discomfort, suspect NSAID gastritis, patient has mild anemia compared to her previous hemograms, patient also has severe opiate-induced constipation, patient has been weaned of Lyrica adequately however symptoms most likely are from her gastritis and constipation, CAT scan of the abdomen and pelvis would be performed to evaluate for any obstructive problems, she will be started on Carafate and Protonix 40 mg IV, patient might need upper GI endoscopy if symptoms are persistent 2. 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 3 Intractable back pain with severe spinal stenosis, disc herniation, lumbar region Multilevel degenerative disease. 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 Chronic Lower extremity edema without any congestive heart failure, patient will be diuresed gently, edson wraps to be placed on lower extremities, resolved negative for DVT. Lac-Hydrin for dry skin 5. Prior history of [place] CAD currently uncomplicated 6. Osteoporosis 7. Intractable radicular pain bilateral lower extremity left more than the right,despiteepidural steroid injections performed recently, orthopedic spine would address surgical intervention with her frail health high risk surgery is anticipated. Start on Lyrica 75 mg has been weaned off prior to admission Percocet for pain control 8. VTE prophylaxis would place patient on digna hose and SCDs and Lovenox 30 9. GI prophylaxis. Omeprazole and Carafate secondary to symptomatic gastritis 10. expected length of stay 2 nights agent might need skilled rehab down the line should her balance be impaired or safety for ambulation gets compromised further
[2016-10-24] MEDS ORDERED: POLYETHYLENE GLYCOL 3350 17 GM POWD.PACK PO STA (17:09)
[2016-10-24] MEDS: SUCRALFATE 1 GM TAB PO SCH ×2 (17:33→21:18)
[2016-10-24] MEDS: ENOXAPARIN 30 MG/0.3 ML SYRINGE SQ SCH (18:43)
[2016-10-24] MEDS ORDERED: MELATONIN 3 MG TABLET PO SCH (21:00)
[2016-10-25] MEDS: HYDROcodone/APAP 5-325MG 1 EACH TAB PO PRN (02:06)
[2016-10-25 07:52] LABS: Basophils # (A) 0.1 k/uL (0-0.2); Basophils % (A) 1 %; CH 32.2; CHCM 33.2; Eosinophils # (A) 0.1 k/uL (0-0.7); Eosinophils % (A) 3 %; HCT 31.1 % (34.0-46.0); HDW 2.91; HGB 10.2 gm/dL (11.4-16.0); Luc # (Auto) 0.14; Luc % (Auto) 3; Lymphocytes # (A) 1.2 k/uL (1.0-4.8); Lymphocytes % (A) 24 %; MCH 31.8 pg (25.0-35.0); MCHC 32.7 g/dL (31.0-37.0); MCV 97.3 fL (80.0-100.0); Mean Platelet Volume 7.2; Monocytes # (A) 0.4 k/uL (0-1.0); Monocytes % (A) 7 %; Neutrophils # (A) 3.2 k/uL (1.3-7.7); Neutrophils % (A) 63 %; RDW 14.1 % (11.5-15.5); WBC 5.2 k/uL (3.8-10.6); WBC (Perox) 5.51
[2016-10-25 08:04] LABS: Calcium 9.3 mg/dL (8.4-10.2); Potassium 3.7 mmol/L (3.5-5.1)
[2016-10-25 08:07] VITALS: BP 131/71; PULSE 81; TEMP 97.7
[2016-10-25] MEDS: FUROSEMIDE 10 MG/ML 4 ML VIAL IV SCH (09:13)
[2016-10-25] MEDS: ENOXAPARIN 30 MG/0.3 ML SYRINGE SQ SCH ×2 (09:14→09:23)
[2016-10-25] MEDS: PANTOPRAZOLE 40 MG/10 ML VIAL IVP SCH (09:14)
[2016-10-25] MEDS: POTASSIUM CHLORIDE ER 20 MEQ TAB.ER PO SCH (09:14)
[2016-10-25] MEDS: SUCRALFATE 1 GM TAB PO SCH ×2 (09:14→11:15)
[2016-10-25] MEDS: ASPIRIN 81 MG CHEW PO SCH (09:14)
[2016-10-25] MEDS ORDERED: ONDANSETRON 4 MG TAB PO PRN (13:12)
--- NOTE | 2016-10-31 13:54 | P.DS ---
Providers Date of admission: 10/23/16 16:46 Expected date of discharge: 10/25/16 Attending physician: Angie Bellamy Primary care physician: Lynette Mcarthur [facility] Course: This is a pleasant 86 year old lady patient of Dr. Lyubov Magana and Dr. Bautista. She has underlying history of lumbar disc disease with L4-L5 severe spinal stenosis, disc herniation spondylolisthesis the previous MRI performed April 2016she recently had an epidural steroid injection performed a lumbar area by Dr. Bautista 07/03/2016 she is scheduled to have spine surgery for her lumbar stenosis L2-L3, severe DJD with disc protrusion L1-L2, however they cannot perform the surgery as his lower extremity swelling has not gotten any better, he also wanted her to be evaluated emergency room second the clinic to the rash and lower extremity swelling. Patient has intermittently been nauseated with severe constipation, they thought it was from the Lyrica and was weaning of the Lyrica her last dose was a week ago, she also has upper epigastric abdominal pain with prior history of cholecystectomy, she has been having increasing use of Motrin patient denies any melena hematochezia no fever no chills no recent foreign travels. In the emergency room labs shows WBC of 6.4, hemoglobin 11.5 from a previous of 13.6 in June 2016, creatinine of 1.19 previous of 0.81 urinalysis is negative, amylase lipase normal, [employer] proBNP normal, albumin normal at 3.9, chest x-ray shows mild cardiomegaly with no overt failure, no pneumothorax or pleural effusion no focal pneumonia venous Doppler lower extremity failed to reveal any lower extremity DVT 10/25: Repeat BUN 22 and creatinine 1.22. CAT scan of the abdomen and pelvis reveals moderately severe constipation, probable renal cysts, small hiatal hernia. Patient had 2 bowel movements and abdominal pain is somewhat improved. Patient will be discharged home in stable condition. Discharge diagnoses: 1. Intractable nausea and vomiting with epigastric abdominal discomfort, suspect NSAID gastritis with mild anemia and severe opiate-induced constipation , 2. 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 4. Chronic Lower extremity edema 5. Prior history of MS and CAD 6. Osteoporosis 7. Intractable radicular pain bilateral lower extremity left more than the right,despite epidural steroid injections performed recently Discharge plan: Return home Impression and plan of care have been directed as dictated by the signing physician. Alicia King nurse practitioner acting as scribe for signing physician. Patient Condition at Discharge: Good Plan - Discharge Summary Discharge Medication List ALPRAZolam [Xanax] 0.5 mg PO HS PRN #30 tab 07/09/16 [Rx] Aspirin [Adult Low Dose Aspirin EC] 81 mg PO DAILY 08/04/16 [History] Furosemide [Lasix] 10 mg PO DAILY 08/04/16 [History] Hydrocodone/Acetaminophen [[place] 5-325] 1 tab PO Q6H PRN 08/04/16 [History] Potassium Chloride [Klor-Con 20] 40 meq PO DAILY 08/04/16 [History] Pregabalin [Lyrica] 50 mg PO DAILY 10/23/16 [History] Follow up Appointment(s)/Referral(s): Lynette Mcarthur MD [Primary Care Provider] - 1-2 days Patient Instructions/Handouts: Urinary Tract Infection in Women (DC), Acute Nausea and Vomiting (DC), Back Pain (GEN), Edema (DC) Activity/Diet/Wound Care/Special Instructions: call on Thursday to schedule appointments Discharge Disposition: HOME SELF-CARE
== END 2016-10-25 14:55 | disposition home or self-care (01) ==
LOC: EC 11:53 → 5MS5E 16:46
PROVIDERS: ADMIT Family Medicine; ATTEND Family Medicine
DX: R11.2 Nausea with vomiting, unspecified (principal); R10.13 Epigastric pain; K59.03 Drug induced constipation; R60.0 Localized edema; E86.0 Dehydration; I25.2 Old myocardial infarction; Z90.49 Acquired absence of other specified parts of digestive tract; M51.26 Other intervertebral disc displacement, lumbar region; K59.00 Constipation, unspecified; M81.0 Age-related osteoporosis without current pathological fracture; N18.2 Chronic kidney disease, stage 2 (mild); I25.10 Atherosclerotic heart disease of native coronary artery without angina pectoris; N39.3 Stress incontinence (female) (male); D64.9 Anemia, unspecified; Z88.2 Allergy status to sulfonamides; T42.6X5A Adverse effect of other antiepileptic and sedative-hypnotic drugs, initial encounter; Z88.8 Allergy status to other drugs, medicaments and biological substances; Z79.82 Long term (current) use of aspirin; Z91.012 Allergy to eggs; Z88.0 Allergy status to penicillin; Z79.899 Other long term (current) drug therapy
CPT/HCPCS: 96374 ×2; 99285 ×2; 36415; 93005; 83880; 80053 ×2; 80048; 82150; 82550; 82553; 83690; 84484; 85025 ×3; 81003; 71020; 93970; 74176; G0378 ×3; J1940 ×3; J2405; C9113 ×2; 96375; 96376

== ENCOUNTER → 2017-03-31 | Outpatient (CLI) | payer MEDICARE, BC ==
--- NOTE | 2017-03-31 17:12 | PN ---
PROGRESS NOTE This patient is coming to see me in followup regarding her chronic insomnia. The patient is well known to me. She is an 86-year-old female patient with history of mild chronic insomnia. The patient had difficulty with initiation of her sleep, and this was thought to be related to increased anxiety. Back then I treated this patient with low-dose Xanax at 0.25 mg on an as-needed basis, should she have difficulties in sleep initiation. Over these past 2 years the patient has been doing well. She has been getting the same regimen and she has been using 0.25 mg of Xanax on an as-needed basis. Typically she requires it around 3 to 4 times a week. She goes to bed around 11:00. She wakes up at 8:00 in the morning. No nighttime arousals for any reason. No reported anxiety at this point. No reported depression. She only reason she requires Xanax is to induce sleep, and this occurs a few times a week. No major hypersomnia or sleepiness during the day. No falls. No snoring. No recent weight gain. No other comorbidities as mentioned. No nocturnal shortness of breath. No nocturnal heartburn. REVIEW OF SYSTEMS: A 12-point review of system was done and positive findings are all mentioned above in the history of present illness. Of significance is the absence of any nocturnal dyspnea or heartburn. No sleepwalking or sleeptalking. No falls. No change of mental status. PHYSICAL EXAMINATION: HER CURRENT VITAL SIGNS: Blood pressure is 149/60, pulse 63, respirations 16, temperature 98.1, saturation 93% on room air. Weight is 152.2. Schneider score is 13. BMI is 27.8. Actual height is 62 inches. GENERAL APPEARANCE: Calm, comfortable. HEENT: Short neck. Crowding of the posterior pharynx. There is no goiter or neck mass. Head is atraumatic, normocephalic. LUNGS: Clear to auscultation. Heart sounds are regular rate and rhythm. Normal S1, S2. No S3. No S4. No murmurs. Abdomen is soft, nontender. No organomegaly. EXTREMITIES: No edema. No cyanosis or clubbing. NEURO: Alert and oriented x3. No focal neurological deficits. Skin is negative for any ulcers, wounds or cellulitis. SKELETAL: Negative for any injuries, fractures or any joint deformities or arthritis. IMPRESSION: Chronic insomnia, anxiety-induced. The patient has difficulty with sleep induction, for which she has responded very nicely to low-dose Xanax without any major side effects or complications. PLAN: 1. Refilled Xanax at 0.5 mg to be taken half tablet on an as-needed basis. .. 2. Implement good sleep hygiene measures. 3. Avoid caffeinated beverages late at night time. 4. See me back in followup in a year's time, earlier if needed. MMODL / IJN: [id number] /
== END | disposition home or self-care (01) ==
LOC: SLEEP 13:03
PROVIDERS: ATTEND Internal Medicine Critical Care Medicine
DX: F51.04 Psychophysiologic insomnia (principal); F41.9 Anxiety disorder, unspecified

== ENCOUNTER → 2018-05-17 | Outpatient (CLI) | payer MEDICARE, BC ==
--- NOTE | 2018-05-17 11:02 | FL ---
ESOPHOGRAM. HISTORY: Dysphagia Comparison 09/28/2012 Esophagram was performed per the air contrast technique. The patient swallowed barium and effervesce nt crystals without difficulty or delay. Esophageal peristalsis and motility appear to be within normal limits. There is no evidence for filling defect, mass or diverticulum. Small reducible sliding type hiatal hernia noted. Subsequently single contrast cervical esophagram was performed which fails demonstrate evidence for a spiration or mass. Transient penetration noted. Mild hypertrophy of the cricopharyngeus musculature. IMPRESSION: 1. Small reducible sliding type hiatal hernia. 2. Transient penetration. 3. Mild cricopharyngeus muscle hypertrophy.
== END ==
LOC: RADFLWHC 09:17
PROVIDERS: ATTEND Internal Medicine
DX: K44.9 Diaphragmatic hernia without obstruction or gangrene (principal)
CPT/HCPCS: 74220

== ENCOUNTER → 2019-03-29 | Outpatient (CLI) | payer MEDICARE, BC ==
--- NOTE | 2019-03-29 17:12 | PN ---
PROGRESS NOTE Carlita is 88 and she is coming in for an annual check. I have diagnosed this patient with a component of mild insomnia. The patient has a mild degree of insomnia and I managed her with low-dose Xanax 0.25 mg half a tablet that she was taking on an as- needed basis. Over this past year she managed to do very well. She is at the point where she is not using her Xanax on a regular basis. For example, for the past one month the patient has not used her Xanax at all. She is going to bed around midnight and she reads. She ultimately goes to sleep around 1 a.m. She gets out of bed between 8 and 9 a.m. in the morning. She does not take any naps during the day. No intake of any coffee or tea. She is currently living with her , whose age is 88. She occasionally has back pain and she takes ibuprofen for pain control. No episodes of fall. No head trauma. No altered mentation. No excessive tiredness or sleepiness during the day. No new-onset medical problems or comorbidities and her condition has been essentially stable. REVIEW OF SYSTEMS: Fourteen-point review of systems was done. Positive findings were all mentioned above in the history of present illness. No history of fall. No history of altered mentation. No focal neurological deficits. No headaches. No seizure activity. Her anxiety level has improved. No depression. No chest pain. No cough or sputum production. She has chronic back pain. No nausea, vomiting, diarrhea or abdominal pain. No dysuria, frequency or urgency. No fall. No wounds or ulceration. PHYSICAL EXAMINATION: VITAL SIGNS: BP is 136/72, pulse 80, respirations 16, temperature 98.2, saturation 97% on room air. Height is 5 feet 1 inch, weight 144, BMI 27.2. Dana Score is 17. GENERAL APPEARANCE: Calm, comfortable. HEAD: Atraumatic, normocephalic. NECK: Supple. No JVD. No goiter or neck mass. Mallampati class IV. LUNGS: Clear to auscultation. HEART: Heart sounds are regular rate and rhythm. Normal S1, S2. No S3, S4. No murmurs. ABDOMEN: Soft, nontender. No organomegaly. EXTREMITIES: No edema. No cyanosis or clubbing. NEUROLOGIC: Alert and oriented x3. No focal neurological deficit. IMPRESSION: 1. Chronic insomnia, improved. Currently she is able to initiate and maintain sleep without any major difficulties. She is taking Xanax on an as-needed basis; currently off treatment. 2. Chronic anxiety. 3. Degenerative arthritis and chronic back pain. 4. History of recent bladder infection that was treated. PLAN: 1. Discontinue Xanax. 2. Patient is implementing good sleep hygiene measures. 3. No need for treatment for insomnia for now. The patient has done relaxation techniques and she is reading. She is able to initiate and maintain sleep without any major difficulties. No caffeine intake. No alcohol intake. No other new-onset comorbidities. Will see this patient on a p.r.n. basis, and for now she will be referred back to her primary care physician. CHERRY / MARIYAN: [id number] /
== END | disposition home or self-care (01) ==
LOC: SLEEP 12:57
PROVIDERS: ATTEND Internal Medicine Critical Care Medicine
DX: F51.04 Psychophysiologic insomnia (principal); F41.9 Anxiety disorder, unspecified; M13.80 Other specified arthritis, unspecified site; G89.29 Other chronic pain; M54.9 Dorsalgia, unspecified; Z87.440 Personal history of urinary (tract) infections

== ENCOUNTER → 2019-07-20 | Day surgery (SDC) | payer MEDICARE, BC ==
[2019-07-15 12:06] VITALS: BMI 26.4
[~2019-07-20] MED LIST: LACTATED RINGERS 1,000 ML IV SCH; LIDOCAINE 1% 20 ML VIAL (10MG/ML) FOR IV START INTRADERMA PRN; LIDOCAINE 1% INJ 10MG/ML (20 ML MDV) ONE; ONDANSETRON 4 MG/2 ML VIAL IVP ONE; PROPOFOL 10 MG/ML 20 ML VIAL IV ONE
[2019-07-20 11:00] VITALS: TEMP 98.2
--- NOTE | 2019-07-20 11:42 | P.PCN ---
Date of Procedure: 07/20/19 Procedure(s) Performed: BRIEF HISTORY: Patient is a 89-year-old, pleasant,female scheduled for an upper endoscopy as a part of evaluation of epigastric pain for the last few months duration.. PROCEDURE PERFORMED: Esophagogastroduodenoscopy with biopsy . PREOPERATIVE DIAGNOSIS: Chronic epigastric pain IV sedation per anesthesia. PROCEDURE: After informed consent was obtained, the patient was brought into the endoscopy unit. IV sedation was administered by Anesthesia under continuous monitoring. Initially the Olympus GIF-140 video endoscope was inserted into the mouth. Esophagus intubated without any difficulty. It was gradually advanced into the stomach and duodenum and carefully examined. The bulb and the second part of the duodenum appeared normal. The scope at this time was withdrawn to the stomach, adequately insufflated with air, and upon careful examination, mucosa of the antrum, had multiple erosions consistent with erosive gastritis and biopsies were done from this area. The body, cardia and the fundus appeared normal. The scope was then withdrawn into the esophagus. The GE j unction was located at 39 cm from the incisors. small sliding Hiatal hernia noted. The esophagus appeared normal. There were no erosions or ulcerations seen and the patient tolerated the procedure well. IMPRESSION: 1. Erosive antral gastritis but no evidence of peptic ulcer disease, . 2. Small sliding type hiatal hernia . RECOMMENDATIONS: The findings of this examination were discussed with the patient as well as a family. She was advised to follow with the biopsy results. She was advised to try [id number] Pepcid 20 mg twice daily for her ongoing symptoms.
[2019-07-20 11:52] VITALS: RESP 18
[2019-07-20 12:21] VITALS: BP 168/73; PULSE 53
== END ==
LOC: ORWHC2ENDO 10:12
PROVIDERS: ATTEND Internal Medicine Gastroenterology
DX: K44.9 Diaphragmatic hernia without obstruction or gangrene (principal); K29.50 Unspecified chronic gastritis without bleeding; I25.10 Atherosclerotic heart disease of native coronary artery without angina pectoris; I25.2 Old myocardial infarction; N39.3 Stress incontinence (female) (male); M19.90 Unspecified osteoarthritis, unspecified site; F41.9 Anxiety disorder, unspecified; Z86.19 Personal history of other infectious and parasitic diseases; Z79.899 Other long term (current) drug therapy; Z88.5 Allergy status to narcotic agent; Z88.8 Allergy status to other drugs, medicaments and biological substances; Z88.0 Allergy status to penicillin; Z88.2 Allergy status to sulfonamides
CPT/HCPCS: 88305; 88342; 43239; J2405; J2001; J2704